=== PATIENT | male | born 1970 | race Caucasian/White ===

== ENCOUNTER 2023-12-27 02:27 | Emergency (ER) | payer OTHER ==
[~2023-12-27] VITALS: Ht 160 cm; Wt 77.1 kg
[2023-12-27 02:34] VITALS: PULSE 65; RESP 20; TEMP 97
[2023-12-27] MEDS: SODIUM CHLORIDE 0.9% 1000ML 1,000 ML IV ONE (02:47)
[2023-12-27] MEDS: ONDANSETRON HCL INJ 2MG/ML 2ML 2 MG/ML VIAL IV STA (02:47)
[2023-12-27] MEDS: KETOROLAC TROMETHAMINE 30 MG/ML VIAL IV STA (02:51)
[2023-12-27 02:59] LABS: BASOPHILS % 0.5 % (0.0-1.0); EOSINOPHILS # (AUTO) 0.2 (0.0-0.4); EOSINOPHILS % 3.1 % (0.0-6.0); HEMATOCRIT 40.3 % (38.2-49.6); HEMOGLOBIN 13.6 g/dL (14.0-18.0); LYMPHOCYTES # (AUTO) 2.1 (1.0-3.2); LYMPHOCYTES % 28.1 % (18.0-39.1); MEAN CORPUSCULAR HEMOGLOBIN 31.5 pg (28-32); MEAN CORPUSCULAR HGB CONC 33.7 g/dL (31-35); MEAN CORPUSCULAR VOLUME 93.3 fL (81-99); MONOCYTES # (AUTO) 0.5 (0.2-0.8); MONOCYTES % 6.7 % (4.4-11.3); NEUTROPHILS # (AUTO) 4.6 (2.1-6.9); NEUTROPHILS % 61.5 % (38.7-80.0); PLATELET COUNT 363 x10e3/uL (140-360); RED BLOOD COUNT 4.32 x10e6/uL (4.3-5.7); WHITE BLOOD COUNT 7.47 x10e3/uL (4.8-10.8)
[2023-12-27 03:07] LABS: CLARITY,URINE CLOUDY (CLEAR); COLOR,URINE YELLOW (YELLOW); GLUCOSE, URINE NEGATIVE (NEGATIVE); KETONES,URINE NEGATIVE (NEGATIVE); LEUKOCYTE ESTERASE ,URINE 1+ (NEGATIVE); NITRITE,URINE NEGATIVE (NEGATIVE); PH,URINE 6 (5 - 7); PROTEIN,URINE DIPSTICK TRACE (NEGATIVE); URINE UROBILINOGEN 0.2 mg/dL (0.2 - 1)
[2023-12-27 03:08] LABS: BILIRUBIN,URINE NEGATIVE (NEGATIVE)
[2023-12-27 03:13] LABS: WBC,URINE (MAN) 21-50 /HPF (0-5)
[2023-12-27 03:14] LABS: AMORPHOUS SEDIMENT,URINE FEW (FEW); BACTERIA,URINE MANY /HPF; CALCIUM OXALATE CRYSTALS,UR MANY (FEW); EPITHELIAL CELLS,URINE FEW /LPF; RBC,URINE 21-50 /HPF (0-5); TRANSITIONAL EPI CELLS,URINE FEW
[2023-12-27 03:18] LABS: ALBUMIN/GLOBULIN RATIO 1.4 (0.8-2.0); ANION GAP 16.3 mmol/L (8-16); BILIRUBIN,TOTAL 0.3 mg/dL (0.2-1.2); CALCIUM 8.6 mg/dL (8.4-10.2); CREATININE, SERUM 0.97 mg/dL (0.72-1.25); TOTAL PROTEIN 6.8 g/dL (6.5-8.1)
[2023-12-27] MEDS: HYDRALAZINE HCL 20 MG/ML VIAL IV STA (03:23)
[2023-12-27 03:24] LABS: POTASSIUM 3.3 mmol/L (3.5-5.1)
[2023-12-27] MEDS: Morphine 4mg INJECTION 4 MG/ML INJ IV ONE (04:09)
[2023-12-27 04:53] VITALS: BP 168/108; PULSE 68; RESP 19; TEMP 97.5; O2SAT 100
[2023-12-27] MEDS ORDERED: FLOMAX0.4 MG PO (04:56)
[2023-12-27] MEDS ORDERED: ULTRAM 50MG50 MG PO (04:56)
[2023-12-27] MEDS ORDERED: ONDANSETRON ODT4 MG PO (04:56)
== END 2023-12-27 05:16 | disposition home or self-care (01) ==
LOC: ER 02:33
DX: N20.0 Calculus of kidney (principal)
CPT/HCPCS: 36415; 74176; 80053; 81001; 83690; 85025; 99284; J0360; J1885; J2270; J2405; J7030